=== PATIENT | male | born 1965 | race Caucasian/White ===

== ENCOUNTER 2020-10-17 09:01 | Observation (INO) ==
[2020-10-17] MEDS ORDERED: HYDROmorphone HCL 1 MG/ML DISP.SYRIN IV ONE (09:13)
[2020-10-17] MEDS ORDERED: ASPIRIN 325 MG TABLET.DR PO ONE (09:13)
[2020-10-17] MEDS ORDERED: NORMAL SALINE 1,000 ML IV ONE (09:14)
[2020-10-17 09:20] LABS: Hematocrit 49.5 % (42.0-52.0); Hemoglobin 16.4 gm/dL (13.5-18.0); Mean Cell Volume 86.5 fl (78-100); Mean Corpuscular Hemoglobin 28.7 pg (27-31); Mean Corpuscular Hgb Conc 33.1 g/dl (32-36); Mean Platelet Volume 10.4 fl (8-11.3); Neutrophil # 9.9 K/mm3 (1.3-6.0); Neutrophil % 79.3 % (42-75.0); Platelet Count 306 K/mm3 (150-450); Red Blood Count 5.72 M/mm3 (4.7-6.0); Red Cell Distribution Width 13.1 % (11.5-14.0); White Blood Count 12.4 K/mm3 (4.0-10.5)
[2020-10-17] MEDS: NITROGLYCERIN 0.4 MG/TAB BTL SL ONE ×3 (09:23→09:35)
[2020-10-17 09:36] LABS: ALT 24 U/L (19-67); AST 11 U/L (0-48); Albumin * 3.5 gm/dl (3.4-5.0); Alkaline Phosphatase * 84 U/L (50-170); Anion Gap 15.1 mmol/L (6.8-13.8); BUN/Creatinine Ratio 15.6 (9.0-21.6); Bilirubin, Total 0.6 mg/dL (0.0-1.1); Blood Urea Nitrogen 19 mg/dL (6-23); Ca. Corrected For Albumin 8.7 mg/dL (8.4-10.2); Calcium * 8.6 mg/dL (7.9-10.9); Carbon Dioxide 24.7 mmol/L (24-32.6); Chloride 103 mmol/L (97-106); Glucose * 182 mg/dL (70-110); Potassium 3.8 mmol/L (3.4-4.6); Sodium 139 mmol/L (132-142); Total Protein 6.7 gm/dL (6.2-8.2)
[2020-10-17 09:40] LABS: Troponin I Less than 0.017 ng/mL (0.00-0.10)
[2020-10-17] MEDS ORDERED: NITROGLYCERIN 1 INCH PACKET TD ONE (10:02)
--- NOTE | 2020-10-17 10:42 | ERNOTE ---
Chest Pain/Cardiac HPI Date of Service: 10/17/20 Chief Complaint: Chest Pain Time Seen by Provider: 10/17/20 09:10 Source: patient Exam Limitations: no limitations Immunizations: IMMUNIZATION HX Immunizations Up to Date No History of Influenza Vaccine More Information Required Hx Pneumococcal Vaccination More Information Required Allergies/Adverse Reactions: Allergies No Known Allergies Allergy (Unverified 10/17/20 09:15) Home Medications: HOME MEDICATIONS Aspirin [Aspirin EC] 325 mg PO DAILY 10/17/20 [Last Taken 10/16/20 20:00] Atorvastatin Calcium 40 mg PO HS 10/17/20 [Last Taken 10/16/20 20:00] Clopidogrel Bisulfate [Plavix] 75 mg PO QDIPM 10/17/20 [Last Taken 10/16/20 20:00] Furosemide 20 mg PO BID 10/17/20 [Last Taken 10/17/20 06:00] Insulin Glargine,Hum.rec.anlog [Lantus] 20 units SC DAILY 10/17/20 [Last Taken 10/17/20 08:00] Insulin Glargine,Hum.rec.anlog [Lantus] 60 units SC HS 10/17/20 [Last Taken 10/16/20 16:00] Metoprolol Tartrate [Lopressor] 25 mg PO BID 10/17/20 [Last Taken 10/17/20 06:00] Tamsulosin HCl 0.4 mg PO DAILY 10/17/20 [Last Taken 10/16/20 16:00 0.4 mg] Narrative: Patient presents to the ED for chest pain. Chest pain stuttered this am but became intense an hour or so ago. States he feels that this is like his cardiac chest pain. Left chest into left arm. Some SOB. Has been having some cough. No calf pain ro leg swelling. Apparently he had a syncopal episode after his CP became intense just [employer]. EMS dispatched, there was some initial thought that an AED had been used but it appears that no AED was utilized. Timing: constant Severity/Quality: moderate Location: left chest Chest Pain Radiation: arms Activities at Onset: none Modifying Factors - Improves: Present: nothing Modifying Factors - Worsens: Present: nothing Nitro Today/Relief: provided by EMS Aspirin Treatment Today: provided by EMS Associated Symptoms: Absent: nausea, vomiting, abdominal pain Prior Chest Pain/Cardiac Workup: Reports: heart attack Prior Treatment: Denies: recently seen Review of Systems - Review of Systems Constitutional: Absent: fever ENT: Absent: sore throat Respiratory: Present: See HPI Cardiology: Present: See HPI Gastrointestinal/Abdominal: Absent: abdominal pain Genitourinary: Absent: dysuria All Other Systems: All systems neg except as marked Medical History (Last Reviewed 10/17/20 @ 10:31 by Jani Madsen MD) BPH (benign prostatic hyperplasia) Cardiac arrest Chronic kidney disease Diabetes Peripheral vascular disease Smoker Surgical History: Surgical History (Last Reviewed 10/17/20 @ 10:31 by Jani Madsen MD) History of heart artery stent Physical Exam - Physical Exam General Appearance: Present: alert, no apparent distress Head Exam: Present: normal inspection, no evidence of injury Eye Exam: Normal inspection: bilateral, PERRL: bilateral Ears, Nose, Throat: Present: normal ENT inspection Neck: Present: normal inspection Respiratory: Present: no respiratory distress, normal breath sounds, no accessory muscle use, lungs clear, chest tenderness Cardiovascular/Chest: Present: regular rate, rhythm, normal peripheral pulses Gastrointestinal/Abdominal: Present: normal bowel sounds, nontender, nondistended, soft Back Exam: Present: no vertebral tenderness Extremity Exam: Present: normal inspection, normal range of motion Neurological Exam: Present: alert, no motor/sensory deficits Skin Exam: Present: normal color, warm/dry Progress - Results and Orders Patient's Lab Results:: I have reviewed the patient's lab results. - Vital Signs Patient's Vital Signs:: I have reviewed the patient's vital signs. Vital Signs: Vital Signs 10/17/20 09:06 10/17/20 09:25 10/17/20 10:00 Temperature 36.6 C Pulse Rate 87 90 80 Respiratory Rate 19 12 15 Blood Pressure 103/75 110/77 99/64 O2 Sat by Pulse Oximetry 100 95 96 - EKG EKG #1 EKG: NSR EKG read: Interp. by me EKG Comments: NSR rate 88. Non-specific ST/T wave changes, no STEMI - X-Ray X-Ray #1 X-Ray: chest Interpretation: Interp. by me X-ray Comments: No real time radiology reads. I personally reviewed CXR image, no acute process by my interp. - Progress/Reassessment Chief Complaint: Chest Pain Progress Note-Subjective: 10/17/20 10:41 Given CP resolved with NTG will admit for r/o given his underlying CAD. D/W Dr Daigle who is agreeable. Departure Clinical Impression: Chest pain, Hx of coronary artery disease - Departure Disposition: Still a patient Condition: Stable Referrals: Brady Robbins MD [Primary Care Provider] -
--- NOTE | 2020-10-17 12:46 | HP ---
Chief Complaint - Chief Complaint Date of Service: 10/17/20 Time of Service: 12:46 Chief Complaint: chest pain History of Present Illness: Patient has a PMHx of previous [place] with 3 cardiac stents placed a year ago, diabetes on insulin therapy. He is currently incarcerated, and was found this morning unresponsive. He reports having CP that started around 4 am, which was 9 hours ago. He was short of breath and a bit nauseated at the time. His pain was sharp, like he was being stabbed in the chest. He denies recent upper respiratory illness. He has some heartburn, for which he takes tums. Denies anxiety. Workup in the ED showed a negative troponin, and no ischemia or infarct on EKG. Sharp chest pain is reproducible on exam. With his cardiac history, he is admitted for repeat troponin and EKG. Medical History (Last Reviewed 10/17/20 @ 10:31 by Jani Madsen MD) BPH (benign prostatic hyperplasia) Cardiac arrest Chronic kidney disease Diabetes Peripheral vascular disease Smoker Surgical History: Surgical History (Last Reviewed 10/17/20 @ 10:31 by Jani Madsen MD) History of heart artery stent Review Of Systems (GEN) - Review of Systems Generalized/Overall Review: Absent: Fever Respiratory: Present: Cough - mild Cardiac: Present: Chest Pain. Absent: Edema Abdominal: Absent: Abdominal Pain Genitourinary: Present: No Symptoms Reported Musculoskeletal: Present: No Symptoms Reported Immunizations: IMMUNIZATION HX Immunizations Up to Date No History of Influenza Vaccine More Information Required Hx Pneumococcal Vaccination More Information Required Allergies/Adverse Reactions: Allergies Allergy/AdvReac Type Severity Reaction Status Date / Time No Known Allergies Allergy Unverified 10/17/20 09:15 Home Medications: HOME MEDICATIONS Aspirin [Aspirin EC] 325 mg PO DAILY 10/17/20 [Last Taken 10/16/20 20:00] Atorvastatin Calcium 40 mg PO HS 10/17/20 [Last Taken 10/16/20 20:00] Clopidogrel Bisulfate [Plavix] 75 mg PO QDIPM 10/17/20 [Last Taken 10/16/20 20:00] Furosemide 20 mg PO BID 10/17/20 [Last Taken 10/17/20 06:00] Insulin Glargine,Hum.rec.anlog [Lantus] 20 units SC DAILY 10/17/20 [Last Taken 10/17/20 08:00] Insulin Glargine,Hum.rec.anlog [Lantus] 60 units SC HS 10/17/20 [Last Taken 10/16/20 16:00] Metoprolol Tartrate [Lopressor] 25 mg PO BID 10/17/20 [Last Taken 10/17/20 06:00] Tamsulosin HCl 0.4 mg PO DAILY 10/17/20 [Last Taken 10/16/20 16:00 0.4 mg] Exam - Exam Vital Signs: Vital Signs - Last Taken Temp 36.7 C 10/17/20 12:27 Pulse 88 10/17/20 12:27 Resp 17 10/17/20 12:27 BP 107/77 10/17/20 12:27 Pulse Ox 95 10/17/20 12:12 Constitutional: Present: Alert, No distress Respiratory: Present: lungs clear, normal breath sounds Cardiovascular/Chest: Present: regular rate, rhythm, other - left upper chest pain with anterior pressure Abdomen: Present: soft, nontender Extremity: Absent: lower extremity edema Eye contact: Present: cooperative Diagnostic Studies: Abnormal Lab Results 10/17/20 10/17/20 Range/Units 09:10 09:10 WBC 12.4 H (4.0-10.5) K/mm3 Immature Gran # (Auto) 0.04 H (0.000-0.0310) K/mm3 Neutrophils % 79.3 H (42-75.0) % Lymphocytes % 13.6 L (20-51) % Neutrophils # 9.9 H (1.3-6.0) K/mm3 Anion Gap 15.1 H (6.8-13.8) mmol/L Random Glucose 182 H (70-110) mg/dL Laboratory Results WBC 12.4 K/mm3 (4.0-10.5) H 10/17/20 09:10 RBC 5.72 M/mm3 (4.7-6.0) 10/17/20 09:10 Hgb 16.4 gm/dL (13.5-18.0) 10/17/20 09:10 Hct 49.5 % (42.0-52.0) 10/17/20 09:10 MCV 86.5 fl (78-100) 10/17/20 09:10 MCH 28.7 pg (27-31) 10/17/20 09:10 MCHC 33.1 g/dl (32-36) 10/17/20 09:10 RDW 13.1 % (11.5-14.0) 10/17/20 09:10 Plt Count 306 K/mm3 (150-450) 10/17/20 09:10 MPV 10.4 fl (8-11.3) 10/17/20 09:10 Immature Gran % (Auto) 0.30 % (0.001-0.429) 10/17/20 09:10 Immature Gran # (Auto) 0.04 K/mm3 (0.000-0.0310) H 10/17/20 09:10 Neutrophils % 79.3 % (42-75.0) H 10/17/20 09:10 Lymphocytes % 13.6 % (20-51) L 10/17/20 09:10 Monocytes % 5.6 % (0.0-9) 10/17/20 09:10 Eosinophils % 0.6 % (0.0-3.0) 10/17/20 09:10 Basophils % 0.6 % (0.0-1.0) 10/17/20 09:10 Nucleated RBC % 0.0 k/mm3 (0-1) 10/17/20 09:10 Neutrophils # 9.9 K/mm3 (1.3-6.0) H 10/17/20 09:10 Lymphocytes # 1.69 k/mm3 (1.5-3.5) 10/17/20 09:10 Monocytes # 0.7 k/mm3 (0.0-1.0) 10/17/20 09:10 Eosinophils # 0.1 k/mm3 (0.0-0.7) 10/17/20 09:10 Absolute Basophils 0.1 k/mm3 (0.0-0.1) 10/17/20 09:10 D-Dimer 0.31 ug/mL (0.19-0.49) 10/17/20 09:10 Sodium 139 mmol/L (132-142) 10/17/20 09:10 Plasma Sodium 140 mmol/L (130-142) 10/17/20 09:10 Potassium 3.8 mmol/L (3.4-4.6) 10/17/20 09:10 Chloride 103 mmol/L (97-106) 10/17/20 09:10 Carbon Dioxide 24.7 mmol/L (24-32.6) 10/17/20 09:10 Anion Gap 15.1 mmol/L (6.8-13.8) H 10/17/20 09:10 BUN 19 mg/dL (6-23) 10/17/20 09:10 Creatinine 1.22 mg/dL (0.4-1.4) 10/17/20 09:10 Est GFR (Non-Af Amer) 66 mL/min (60-130) 10/17/20 09:10 BUN/Creatinine Ratio 15.6 (9.0-21.6) 10/17/20 09:10 Random Glucose 182 mg/dL (70-110) H 10/17/20 09:10 Calcium 8.6 mg/dL (7.9-10.9) 10/17/20 09:10 Calcium Adj for Albumin 8.7 mg/dL (8.4-10.2) 10/17/20 09:10 Total Bilirubin 0.6 mg/dL (0.0-1.1) 10/17/20 09:10 AST 11 U/L (0-48) 10/17/20 09:10 ALT 24 U/L (19-67) 10/17/20 09:10 Alkaline Phosphatase 84 U/L (50-170) 10/17/20 09:10 Troponin I Less than 0.017 ng/mL (0.00-0.10) 10/17/20 09:10 Total Protein 6.7 gm/dL (6.2-8.2) 10/17/20 09:10 Albumin 3.5 gm/dl (3.4-5.0) 10/17/20 09:10 SARS-CoV-2 (PCR) Not detected (NotDetected) 10/17/20 09:43 Assessment/Plan - Narrative Narrative: He was found unresponsive this morning at the facility where he is incarcerated, and is complaining of chest pain since he woke. Negative troponin and EKG in the ED, and will repeat this afternoon. He was given aspirin, nitro, and dilaudid in the ED and his CP has improved. His pain is reproducible, making MSK the most likely source. Since he was given 325 mg aspirin in the ED, will not give an additional NSAID today, to avoid flaring gastritis or causing gastric bleeding, but this could be given in the future. His med list not available to verify his aspirin dose, but anticipate it would be 81 mg. Will repeat troponin and EKG 6 hours after they were drawn initially, and if negative, he can return to the facility. - Assessment/Plan (1) Chest pain Problem: Acute (2) Insulin dependent diabetes mellitus Problem: Chronic (3) Hx of coronary artery disease Problem: Chronic
[2020-10-17 15:59] LABS: Cocaine Ur Negative (NEGATIVE); Urine Barbiturate Negative (NEGATIVE); Urine Benzodiazepines Negative (NEGATIVE); Urine PCP Negative (NEGATIVE); Urine THC Negative (NEGATIVE)
[2020-10-17 16:02] LABS: Urine Opiates Positive (NEGATIVE)
--- NOTE | 2020-10-17 16:04 | DS ---
(1) Chest pain Problem: Resolved (2) Insulin dependent diabetes mellitus Problem: Chronic (3) Hx of coronary artery disease Problem: Chronic Date of Discharge:: 10/17/20 Hospital Course: Patient has a PMHx of previous [place] with 3 cardiac stents placed a year ago, diabetes on insulin therapy. He is currently incarcerated, and was found this morning unresponsive. He reports having CP that started around 4 am, which was 9 hours ago. Thw syncopal episode happened after the CP started. He was short of breath and a bit nauseated at the time. His pain was sharp, like he was being stabbed in the chest. He denies recent upper respiratory illness. He has some heartburn, for which he takes tums. Denies anxiety. Workup in the ED showed a negative troponin, and no ischemia or infarct on EKG. Sharp chest pain is reproducible on exam. With his cardiac history, he is admitted for repeat troponin and EKG. Repeat troponin was also negative, and no ischemia or infarct on repeat EKG. His CP was reproducible with palpation, and is felt to be musculoskeletal. Will DC back to facility. Can use short term low dose ibuprofen for costochondritis, but recommend limited use as he also takes 325 mg aspirin daily. Procedures Performed: none Results and Findings: Lab Pending Results 10/17/20 09:10: WBC 12.4 H, RBC 5.72, Hgb 16.4, Hct 49.5, MCV 86.5, MCH 28.7, MCHC 33.1, RDW 13.1, Plt Count 306, MPV 10.4, Immature Gran % (Auto) 0.30, Immature Gran # (Auto) 0.04 H, Neutrophils % 79.3 H, Lymphocytes % 13.6 L, Monocytes % 5.6, Eosinophils % 0.6, Basophils % 0.6, Nucleated RBC % 0.0, Neutrophils # 9.9 H, Lymphocytes # 1.69, Monocytes # 0.7, Eosinophils # 0.1, Absolute Basophils 0.1 10/17/20 09:10: Sodium 139, Plasma Sodium 140, Potassium 3.8, Chloride 103, Carbon Dioxide 24.7, Anion Gap 15.1 H, BUN 19, Creatinine 1.22, Est GFR (Non-Af Amer) 66, BUN/Creatinine Ratio 15.6, Random Glucose 182 H, Calcium 8.6, Calcium Adj for Albumin 8.7, Total Bilirubin 0.6, AST 11, ALT 24, Alkaline Phosphatase 84, Troponin I Less than 0.017, Total Protein 6.7, Albumin 3.5 10/17/20 09:10: D-Dimer 0.31 10/17/20 09:43: SARS-CoV-2 (PCR) Not detected 10/17/20 14:50: Troponin I Less than 0.017 Discharge Location: Longterm Disposition: Home self-care Condition: Stable Discharge Activity: Activity as tolerated Discharge Diet: Resume usual diet Referrals: Brady Robbins MD [Primary Care Provider] - One Week Complete Home Medications List: Complete Home Medication List: Aspirin [Aspirin EC] 325 mg PO DAILY 10/17/20 Atorvastatin Calcium 40 mg PO HS 10/17/20 Clopidogrel Bisulfate [Plavix] 75 mg PO QDIPM 10/17/20 Furosemide 20 mg PO BID 10/17/20 Insulin Glargine,Hum.rec.anlog [Lantus] 20 units SC DAILY 10/17/20 Insulin Glargine,Hum.rec.anlog [Lantus] 60 units SC HS 10/17/20 Metoprolol Tartrate [Lopressor] 25 mg PO BID 10/17/20 Tamsulosin HCl 0.4 mg PO DAILY 10/17/20
[2020-10-17 16:07] VITALS: BP 105/73
[2020-10-17] MEDS ORDERED: INSULIN LISPRO 100 UNITS/ML VIAL SC SCH (17:00)
== END 2020-10-17 16:15 | disposition home or self-care (01) ==
LOC: ER 09:01 → MS 09:01
PROVIDERS: ADMIT Family Medicine; ATTEND Family Medicine